=== PATIENT | male | born 1995 | race Caucasian/White ===

== ENCOUNTER 2022-12-02 11:06 | Emergency (ER) | payer OTHER ==
[2022-12-02] MEDS ORDERED: Fluorescein 1 MG Ophth Strip EYELF ONE (11:16)
[2022-12-02] MEDS ORDERED: Proparacaine 0.5% Ophth Soln 15 ML Bottle EYELF ONE (11:17)
[2022-12-02] MEDS ORDERED: Erythromycin Base 0.5% Ophth Oint 1 GM Tube EYELF ONE (11:37)
[2022-12-02] MEDS ORDERED: Ketorolac 60 MG/2 ML SDV IM ONE (11:37)
== END 2022-12-02 12:06 | disposition home or self-care (01) ==
LOC: JD.ED 11:06
DX: S05.02XA Injury of conjunctiva and corneal abrasion without foreign body, left eye, initial encounter (principal); Z72.0 Tobacco use
CPT/HCPCS: 99283; A9270; J3490